=== PATIENT | female | born 1995 | race Caucasian/White ===

== ENCOUNTER 2025-07-21 23:02 | Outpatient (CLI) | payer BC, SELFPAY ==
[2025-07-21 23:06] VITALS: BMI 31.6
[2025-07-21 23:12] VITALS: BP 134/86; PULSE 103
[2025-07-21 23:27] VITALS: BP 128/79; PULSE 86
[2025-07-21 23:42] VITALS: BP 121/78; PULSE 93
[2025-07-21 23:50] VITALS: BP 121/78; PULSE 93; RESP 15
== END 2025-07-21 23:25 | disposition home or self-care (01) ==
LOC: OPOB 23:03 → OBGYN 23:04
PROVIDERS: Visit Provider Obstetrics & Gynecology
DX: O26.899 Other specified pregnancy related conditions, unspecified trimester (principal); Z3A.00 Weeks of gestation of pregnancy not specified; M54.9 Dorsalgia, unspecified
CPT/HCPCS: 59025; 99211